=== PATIENT | female | born 1965 | race African-American/Black ===

== ENCOUNTER 2021-02-14 12:05 | Emergency (ER) | payer OTHER ==
[~2021-02-14] VITALS: Ht 170.2 cm; Wt 72.7 kg
[~2021-02-14 12:05] MED LIST: AMLO-257 PO; ASPI-891 PO; FERR-89 PO; GABA-531 PO; PHEN100C23 PO
[2021-02-14 12:15] VITALS: BP 119/71
== END 2021-02-14 13:28 | disposition home or self-care (01) ==
LOC: EMS 12:05
DX: H65.02 Acute serous otitis media, left ear (principal); I10 Essential (primary) hypertension; Z90.710 Acquired absence of both cervix and uterus; Z86.73 Personal history of transient ischemic attack (TIA), and cerebral infarction without residual deficits
CPT/HCPCS: 99283; Z7502

== ENCOUNTER 2021-02-25 12:48 | Emergency (ER) | payer OTHER ==
[~2021-02-25] VITALS: Ht 167.6 cm; Wt 81.8 kg
[2021-02-25 12:51] VITALS: BP 157/93
[2021-02-25] MEDS ORDERED: CALAMINE/ZINC OXIDE 177 ML LOTION TP ONE (13:30)
[2021-02-25] MEDS ORDERED: DiphenhydrAMINE HCL 25 MG CAPSULE PO ONE (13:30)
== END 2021-02-25 14:08 | disposition home or self-care (01) ==
LOC: EMS 12:50
DX: S30.860A Insect bite (nonvenomous) of lower back and pelvis, initial encounter (principal); S40.862A Insect bite (nonvenomous) of left upper arm, initial encounter; I10 Essential (primary) hypertension; Z86.73 Personal history of transient ischemic attack (TIA), and cerebral infarction without residual deficits; W57.XXXA Bitten or stung by nonvenomous insect and other nonvenomous arthropods, initial encounter; Y93.89 Activity, other specified; Y92.89 Other specified places as the place of occurrence of the external cause; Y99.8 Other external cause status
CPT/HCPCS: 99283

== ENCOUNTER 2024-09-11 08:43 | Emergency (ER) | payer OTHER ==
[~2024-09-11] VITALS: Ht 167.6 cm; Wt 68.2 kg
[~2024-09-11 08:43] MED LIST changes: -FERR-89 PO; +FERR325T27 PO
[2024-09-11 08:58] VITALS: TEMP 98.2
[2024-09-11] MEDS: ACETAMINOPHEN 500 MG TABLET PO ONE (09:12)
[2024-09-11] MEDS: MORPHINE SULFATE 2 MG/ML SYRINGE IVP ONE (09:18)
[2024-09-11 09:25] LABS: BASOPHILS % (AUTO) 0.6 % (0.0-2.0); EOSINOPHILS % (AUTO) 3.3 % (1.0-6.0); HEMATOCRIT 35.3 % (36-46); HEMOGLOBIN 11.4 g/dL (12.0-16.0); LYMPHOCYTES # (AUTO) 1.6 K/uL (1.0-4.8); MEAN CORPUSCULAR HEMOGLOBIN 27.4 pg (26.0-34.0); MEAN CORPUSCULAR HGB CONC 32.2 G/dL (31.0-37.0); MEAN CORPUSCULAR VOLUME 85 fL (80-100); MONOCYTES # (AUTO) 0.4 K/uL (0.1-1.0); MONOCYTES % (AUTO) 9.1 % (2.0-9.0); NEUTROPHILS # (AUTO) 1.9 K/uL (1.8-7.7); PLATELET COUNT (AUTO) 227 K/uL (150-450); RED BLOOD CELL COUNT(AUTO) 4.14 MIL/uL (4.00-5.20); RED CELL DISTRIBUTION WIDTH 14.6 % (11.5-14.5)
[2024-09-11] MEDS ORDERED: SODIUM CHLORIDE 0.9% 100 ML ONE (09:32)
[2024-09-11] MEDS ORDERED: IOHEXOL 350 MG/ML 100 ML VIAL ONE (09:32)
[2024-09-11 09:34] LABS: ANION GAP 10 mmol/L (8-16); CALCIUM, TOTAL 9.3 mg/dL (8.8-10.5); CARBON DIOXIDE 27 mmol/L (22-29); CHLORIDE 104 mmol/L (98-107); CREATININE 0.82 mg/dL (0.60-1.30); GLOMERULAR FILTR. RATE CALC > 60 mL/min (>60); GLUCOSE,RANDOM 95 mg/dL (70-110); POTASSIUM 3.9 mmol/L (3.5-5.1); SODIUM SERUM 141 mmol/L (136-145); UREA NITROGEN, BLOOD 19 mg/dL (7-18)
[2024-09-11 09:37] LABS: ALBUMIN 3.5 g/dL (3.4-5.0); BILIRUBIN,DIRECT 0.1 mg/dL (0.00-0.20); BILIRUBIN,TOTAL 0.3 mg/dL (0.1-1.0); TOTAL PROTEIN, SERUM 7.7 g/dL (6.4-8.2)
[2024-09-11 09:41] LABS: CREATINE KINASE, TOTAL ONLY 44 U/L (26-192)
[2024-09-11 09:42] LABS: TROPONIN I-HIGH SENSITIVITY Less Than 4 ng/L (<51)
[2024-09-11 09:44] LABS: APPEARANCE,URINE CLEAR (CLEAR); BILIRUBIN,URINE NEGATIVE (NEGATIVE); COLOR,URINE LIGHT YELLOW (YELLOW); GLUCOSE, URINE (UA) NEGATIVE (NEGATIVE); KETONES,URINE NEGATIVE (NEGATIVE); LEUKOCYTE ESTERASE ,URINE MODERATE (NEGATIVE); NITRATE,URINE NEGATIVE (NEGATIVE); OCCULT BLOOD,URINE NEGATIVE (NEGATIVE); PROTEIN,URINE NEGATIVE (NEGATIVE); SPECIFIC GRAVITIY, URINE 1.016 (1.003-1.030); UROBILINOGEN,URINE <=1.0 mg/dL (<=1.0)
[2024-09-11 09:54] LABS: B-TYPE NATRIURETIC PEPTIDE < 5 pg/mL (0-100)
[2024-09-11 09:58] LABS: RBC,URINE None Seen /HPF (0-2)
[2024-09-11 09:59] LABS: BACTERIA,URINE Moderate /HPF (None Seen); SQUAMOUS EPITHELIAL CELL,UR Moderate /LPF (None Seen)
[2024-09-11] MEDS ORDERED: ACET-3385 PO (11:21)
[2024-09-11] MEDS ORDERED: CEPH-558 PO (11:21)
[2024-09-11] MEDS: CEPHALEXIN MONOHYDRATE 500 MG CAPSULE PO ONE (11:31)
[2024-09-11 11:39] VITALS: BP 133/87; PULSE 74; RESP 16; O2SAT 99
== END 2024-09-11 11:41 | disposition home or self-care (01) ==
LOC: EMS 08:51
DX: G93.89 Other specified disorders of brain (principal); N39.0 Urinary tract infection, site not specified; R07.9 Chest pain, unspecified; I10 Essential (primary) hypertension; Z79.82 Long term (current) use of aspirin; Z90.710 Acquired absence of both cervix and uterus; Z79.899 Other long term (current) drug therapy
CPT/HCPCS: 99285; 70450; 96374; 71045; 80048; 80076; 81001; 82550; 83880; 84484; 85025; 87077; 87086; 36415; 74177; 93005; Q9967; J2270; J7050; 87186

== ENCOUNTER → 2024-11-05 | Emergency (ER) | payer OTHER ==
[~2024-11-05] VITALS: Ht 167.6 cm; Wt 75.9 kg
[~2024-11-05] MED LIST changes: +ACET-3385 PO; +CEPH-558 PO
[2024-11-05 11:21] VITALS: BP 131/87; PULSE 97; RESP 16; TEMP 98.4; O2SAT 96
== END | disposition left against medical advice (07) ==
LOC: EMS 10:48
DX: M54.50 Low back pain, unspecified (principal); Z53.21 Procedure and treatment not carried out due to patient leaving prior to being seen by health care provider